=== PATIENT | male | born 1955 | race Hispanic/Latino ===

== ENCOUNTER 2018-02-17 08:48 | Day surgery (SDC) | payer OTHER ==
--- NOTE | 2018-02-16 15:40 | RAD REPORT ---
EXAM DESCRIPTION: RAD - Chest Pa And Lat (2 Views) - 02/16/2018 3:32 pm CLINICAL HISTORY: preop Chest pain. COMPARISON: Chest Pa And Lat (2 Views) dated 05/20/2017 FINDINGS: The lungs are clear. The heart is mildly prominent in size. No displaced fractures. IMPRESSION: No acute or concerning finding suspected.
[2018-02-16 16:47] LABS: Absolute Lymphocytes (CBC) 1.4 K/uL (0.7-4.9); Absolute Monocytes 0.7 K/uL (0.1-1.3); Absolute Neutrophil 7.6 K/uL (1.8-8.0); Basophils % 0.4 % (0-1.3); Eosinophils % 1.4 % (0-4.4); Hematocrit 41.2 % (39.6-49.0); Lymphocytes % 14.1 % (15.3-44.8); MCH 28.8 pg (27.0-35.0); MCV 84.7 fL (80-100); MPV 9.1 fL (7.6-11.3); Monocytes % 7.3 % (3.3-12.3); RBC Red Blood Cell Count 4.86 M/uL (4.33-5.43)
--- OUTSIDE RECORDS SUMMARY | 2018-02-17 08:54 | XMS REPORT ---
:1955 [facility] [place] [address] Care Team Providers Name Role Phone MICHAEL PHAN Unavailable Unavailable Problems This patient has no known problems. Allergies, Adverse Reactions, Alerts This patient has no known allergies or adverse reactions. Medications This patient has no known medications. Results Test Description Test Time Test Comments Text Results Atomic Results Result Comments VITAMIN B12 AND FOLATE 2017-02-03 18:56:00 Test Item Value Reference Range Comments VITAMIN B12 (BEAKER) (test ctim=920) > pg/mL 213-816 FOLATE (BEAKER) (test cfoy=451) 15.2 ng/mL >=7.0 Effective 05/09/2014: Folate Reference Range ChangeNew: >=7.0 Previous: & gt;=5.4BASIC METABOLIC [id number] 06:11:00 Test Item Value Reference Range Comments SODIUM (BEAKER) (test 137 meq/L 136-145 fjvg=795) POTASSIUM (BEAKER) (test 4.5 meq/L 3.5-5.1 yzei=757) CHLORIDE (BEAKER) (test 105 meq/L 98-107 sulb=202) CO2 (BEAKER) (test 22 meq/L 22-29 lpaf=502) BLOOD UREA NITROGEN 17 mg/dL 7-21 (BEAKER) (test vllk=102) CREATININE (BEAKER) (test 1.13 mg/dL 0.57-1.25 fvak=248) GLUCOSE RANDOM (BEAKER) 157 mg/dL 70-105 (test lppg=751) CALCIUM (BEAKER) (test 9.2 mg/dL 8.4-10.2 pgfc=017) EGFR (BEAKER) (test 66 mL/min/1.73 sq m ESTIMATED GFR IS NOT unbd=3866) ACCURATE CREATININE CLEARANCE IN PREDICTING GLOMERULAR FILTRATION RATE. ESTIMATED GFR IS NOT APPLICABLE FOR DIALYSIS PATIENTS. PROTHROMBIN TIME/[id number] 05:53:00 Test Item Value Reference Range Comments PROTIME (BEAKER) (test xjip=058) 14.8 seconds 11.7-14.7 INR (BEAKER) (test txqv=650) 1.2 <=5.9 RECOMMENDED COUMADIN/WARFARIN INR THERAPY RANGESSTANDARD DOSE: 2.0 - 3.0 Includes: PROPHYLAXIS forvenous thrombosis, systemic embolization; TREATMENT for venous thrombosis and/or pulmonary embolus.HIGH RISK: Target INR is 2.5-3.5 for patients with mechanical heart valves.CBC W/PLT COUNT & AUTO [id number] 05:52:00 Test Item Value Reference Range Comments WHITE BLOOD CELL COUNT (BEAKER) (test aqnk=988) 7.2 K/ L 3.5-10.5 RED BLOOD CELL COUNT (BEAKER) (test joys=507) 5.21 M/ L 4.63-6.08 HEMOGLOBIN (BEAKER) (test lnnh=558) 15.4 GM/DL 13.7-17.5 HEMATOCRIT (BEAKER) (test nbfb=191) 45.2 % 40.1-51.0 MEAN CORPUSCULAR VOLUME (BEAKER) (test azxa=954) 86.8 fL 79.0-92.2 MEAN CORPUSCULAR HEMOGLOBIN (BEAKER) (test 29.6 pg 25.7-32.2 iiuo=880) MEAN CORPUSCULAR HEMOGLOBIN CONC (BEAKER) (test 34.1 GM/DL 32.3-36.5 ocsn=585) RED CELL DISTRIBUTION WIDTH (BEAKER) (test 12.9 % 11.6-14.4 rery=552) PLATELET COUNT (BEAKER) (test ekkz=955) 237 K/CU MM 150-450 MEAN PLATELET VOLUME (BEAKER) (test sswg=979) 10.8 fL 9.4-12.4 NUCLEATED RED BLOOD CELLS (BEAKER) (test 0 /100 WBC 0-0 jgty=718) NEUTROPHILS RELATIVE PERCENT (BEAKER) (test 92 % mozl=761) LYMPHOCYTES RELATIVE PERCENT (BEAKER) (test 7 % jqjy=805) MONOCYTES RELATIVE PERCENT (BEAKER) (test 1 % vvve=517) EOSINOPHILS RELATIVE PERCENT (BEAKER) (test 0 % hcha=703) BASOPHILS RELATIVE PERCENT (BEAKER) (test 0 % aokk=046) NEUTROPHILS ABSOLUTE COUNT (BEAKER) (test 6.58 K/ L 1.78-5.38 hrli=580) LYMPHOCYTES ABSOLUTE COUNT (BEAKER) (test 0.49 K/ L 1.32-3.57 mrzs=455) MONOCYTES ABSOLUTE COUNT (BEAKER) (test 0.06 K/ L 0.30-0.82 jqyj=976) EOSINOPHILS ABSOLUTE COUNT (BEAKER) (test 0.00 K/ L 0.04-0.54 ckoi=988) BASOPHILS ABSOLUTE COUNT (BEAKER) (test 0.02 K/ L 0.01-0.08 mmlt=913) IMMATURE GRANULOCYTES-RELATIVE PERCENT (BEAKER) 0 % 0-1 (test zzec=8537)
--- OUTSIDE RECORDS SUMMARY | 2018-02-17 08:54 | XMS REPORT | Clinical Summary ---
:1955 Author Organization [facility] Address [address] [place] [address] Phone Care Team Providers Name Role Phone Unavailable Primary Care Provider Unavailable Allergies No Known Allergies Current Medications Prescription Sig. Disp. Refills Start Date End Date Status aspirin 81 MG EC Take 81 mg by Active tabletIndications: mouth daily. Pain amLODIPine (NORVASC) Take 1 tablet 30 tablet 1 02/04/2017 02/04/2018 10 MG tablet (10 mg total) by mouth daily. Active Problems Problem Noted Date Lumbar disc herniation 02/03/2017 Weakness of both lower extremities 02/03/2017 Essential hypertension 02/03/2017 Stage 3 chronic kidney disease 02/03/2017 Fall 02/03/2017 Family History Medical History Relation Name Comments Hypertension Mother Relation Name Status Comments Father Mother Social History Tobacco Use Types Packs/Day Years Used Date Never Smoker Tobacco Cessation: Counseling Given: No Alcohol Use Drinks/Week oz/Week Comments Yes occasionally Sex Assigned at Date Recorded Not on file Last Filed Vital Signs Not on file Plan of Treatment Not on file Results Not on fileafter 02/16/2017
[2018-02-17] MEDS ORDERED: CEFAZOLIN/SWI 1gm 1 GM/10 ML SYR ONE (08:59)
[2018-02-17] MEDS ORDERED: Ringers Lactate 1,000 ML IV ONE (08:59)
[2018-02-17] MEDS ORDERED: BUPIVACAINE 0.5% PF 10 ML VIAL ONE (09:02)
[2018-02-17] MEDS ORDERED: FENTANYL CITR 100 MCG/2 ML ONE (10:15)
[2018-02-17] MEDS ORDERED: MIDAZOLAM HCL 2 MG/2 ML INJ ONE (10:15)
[2018-02-17] MEDS ORDERED: PROPOFOL 200 MG/20 ML VIAL IV ONE (10:15)
[2018-02-17] MEDS ORDERED: TRAMADOL 37.5mg/APAP 325mg PER TAB ONE (12:12)
--- NOTE | 2018-02-17 16:20 | EKG ---
Test Date: 2018-02-16 Test Time: 15:37:51 Hotel Yardperson: CHERYLE MEASUREMENT RESULTS: Intervals: Rate: 64 [place]: 144 QRSD: 96 QT: 404 QTc: 416 [place]: P: 47 [place]: 144 QRS: 5 T: 47 INTERPRETIVE STATEMENTS: Normal sinus rhythm Normal ECG Compared to ECG 07/03/2005 06:21:28 Sinus bradycardia no longer present Electronically Signed On 02-17-18 16:14:54 CDT by Donnell Andres
--- NOTE | 2018-02-17 22:26 | OP ---
Date of Procedure: 02/17/2018 Surgeon: Kevin Negron MD Preoperative Diagnosis: Abdominal wall abscess x2. Postoperative Diagnosis: Abdominal wall abscess x2. Procedure: Incision, drainage, and debridement of abdominal wall abscess x2. Estimated Blood Loss: Minimal. Specimen: Pus from each side. Anesthesia: General. Complications: None. Disposition: The patient tolerated the procedure in stable condition and was taken to recovery in go od general condition. Procedure In Detail: The patient was brought to the OR and placed in supine position. General anest hesia was begun. The patient was prepped and draped in usual sterile fashion. Marcaine 0.5% was inf iltrated locally. A 15-blade was used to make a 4-cm incision over both abscesses on both sides of t he midline. Subcutaneous tissue was divided. Pus under pressure was evacuated. Cultures were done. Wound was irrigated. Bleeding was controlled with cautery. Loculation was broken up. Necrotic ti ssue was debrided. Then, wound was irrigated again, and then wet-to-dry normal saline dressing was a pplied. The patient tolerated the procedure in stable condition and was taken to Recovery in good ge neral condition. Discharge Note: The patient will go to day surgery and home when stable. Disposition: Home. Condition: Stable. Discharge Instructions: Resume home medications and diet. Activity as tolerated. No heavy lifting. Wet-to-dry normal saline dressing changes daily. The patient has home health. Cipro and Bactrim D S already given to the patient. Ultracet 1 tablet p.o. q.4 hours p.r.n. pain. Follow up in my offic e in 2 weeks. Call for appointment. KJ/KODY Voice ID: [id number] Report ID: [id number]
== END 2018-02-17 12:40 | disposition home or self-care (01) ==
LOC: OR 08:48
PROVIDERS: ATTEND Surgery
PROC: 0J980ZZ Drainage of Abdomen Subcutaneous Tissue and Fascia, Open Approach (ICD-10-PCS; principal; 2018-02-17 10:00)
DX: L02.211 Cutaneous abscess of abdominal wall (principal); I10 Essential (primary) hypertension; Z88.5 Allergy status to narcotic agent; F32.9 Major depressive disorder, single episode, unspecified; E66.9 Obesity, unspecified
CPT/HCPCS: 36415; 71046; 80048; 85025; 87070; 87075; 87205; 93005; J0690; J2250; J3010